=== PATIENT | female | born 1995 | race Caucasian/White ===

== ENCOUNTER 2018-10-27 12:11 | Emergency (ER) | payer SELFPAY ==
[2018-10-27 13:32] LABS: Urine Blood 2+ (NEG); Urine Glucose NEGATIVE (NEG); Urine Protein NEGATIVE (NEG); Urine Specific Gravity 1.025 (1.005-1.030); Urine pH 5.5 (5.0-7.0)
--- NOTE | 2018-10-27 13:42 | ER ---
Nurse's Notes [facility] Name: Katharina Contreras Age: 22 yrs Sex: Female : 1995 Arrival Date: 10/27/2018 Time: 12:14 Bed 23 Private MD: Diagnosis: Abnormal uterine and vaginal bleeding, unspecified Presentation: 10/27 12:53 Presenting complaint: Patient states: Vaginal bleeding with large clots since last aj1 week. States that the bleeding stopped yesterday but then last night when she wiped she noticed some clots and then this morning she was bleeding again. Reports seeing a large clot the last time she went to the bathroom. Patient reports that her periods have been irregular and not having a normal period since January. 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 Transition of care: patient was not received from another setting of care. Onset of symptoms was September 2018. Risk Assessment: Do you want to hurt yourself or someone else? Patient reports no desire to harm self or others. Initial Sepsis Screen: Does the patient meet any 2 criteria? No. Patient's initial sepsis screen is negative. Does the patient have a suspected source of infection? No. Patient's initial sepsis screen is negative. Care prior to arrival: None. 12:53 Method Of Arrival: Ambulatory aj1 12:53 Acuity: ROGELIO 3 aj1 Triage Assessment: 12:53 General: Appears in no apparent distress. comfortable, Behavior is calm, cooperative, aj1 appropriate for age. Pain: Complains of pain in right lower quadrant and left lower quadrant Pain currently is 2 out of 10 on a pain scale. Quality of pain is described as crampy. : Reports vaginal bleeding that is with clots. 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 - Social history:: Smoking status: Patient/guardian denies using tobacco. - Family history:: not pertinent. - Ebola Screening: : Patient negative for fever greater than or equal to 101.5 degrees Fahrenheit, and additional compatible Ebola Virus Disease symptoms. Screenin:01 Abuse screen: Denies threats or abuse. Denies injuries from another. Nutritional aj1 screening: No deficits noted. Tuberculosis screening: No symptoms or risk factors identified. 13:59 Fall Risk None identified. aj1 Assessment: 12:56 General: Appears in no apparent distress. comfortable, Behavior is calm, cooperative, aj1 appropriate for age. Pain: Complains of pain in left lower quadrant and right lower quadrant Pain does not radiate. Pain currently is 2 out of 10 on a pain scale. Quality of pain is described as crampy. Neuro: Level of Consciousness is awake, alert, obeys commands, Oriented to person, place, time, situation. Cardiovascular: Patient's skin is warm and dry. Respiratory: Airway is patent Respiratory effort is even, unlabored, Respiratory pattern is regular, symmetrical. GI: Reports cramping. : Reports vaginal bleeding that is bright red, with clots. : Patient reports vaginal bleeding for the past week. EENT: No signs and/or symptoms were reported regarding the EENT system. Derm: No signs and/or symptoms reported regarding the dermatologic system. Skin is pink, warm \T\ dry. normal. Musculoskeletal: No signs and/or symptoms reported regarding the musculoskeletal system. Circulation, motion, and sensation intact. 13:51 Reassessment: Patient appears in no apparent distress at this time. No changes from aj1 previously documented assessment. Patient and/or family updated on plan of care and expected duration. Pain level reassessed. Patient is alert, oriented x 3, equal unlabored respirations, skin warm/dry/pink. Vital Signs: 12:53 BP 126 / 91; Pulse 102; Resp 18; Temp 98.0; Pulse Ox 97% on R/A; Weight 102.06 kg; aj1 Height 5 ft. 3 in. (160.02 cm) (R); Pain 2/10; 13:35 BP 109 / 80 Supine; Pulse 87; Resp 18; Pulse Ox 97% on R/A; aj1 13:37 BP 121 / 86 Sitting; Pulse 79; aj1 13:39 BP 117 / 88 Standing; Pulse 81; aj1 12:53 Body Mass Index 39.86 (102.06 kg, 160.02 cm) aj1 ED Course: 12:14 Patient arrived in ED. rg4 12:42 Kali Hinson MD is Attending Physician. [facility] 12:53 Steff Pearce RN is Primary Nurse. aj1 12:53 Arm band placed on Patient placed in an exam room. aj1 12:55 Triage completed. aj1 13:01 Patient has correct armband on for positive identification. Bed in low position. Call aj1 light in reach. Side rails up X 1. 13:01 No provider procedures requiring assistance completed. aj1 13:25 Assist provider with pelvic exam: Set up pelvic tray. Performed by Kali Hinson MD aj1 Patient tolerated well. 13:40 Gwendolyn Jenkins MD is Referral Physician. [facility] 13:53 Patient did not have IV access during this emergency room visit. aj1 Administered Medications: No medications were administered Outcome: 13:41 Discharge ordered by . [facility] 13:59 Discharged to home ambulatory. aj1 13:59 Condition: good 13:59 Discharge instructions given to patient, Instructed on discharge instructions, follow up and referral plans. medication usage, Demonstrated understanding of instructions, follow-up care, medications, Prescriptions given X 2. 13:59 Patient left the ED. aj Signatures: Steff Pearce, RN RN aj1 Kali Hinson MD MD cha Garcia, Rubi rg4
--- NOTE | 2018-10-27 13:42 | EDPHYS ---
Physician Documentation [facility] Name: Katharina Contreras Age: 22 yrs Sex: Female : 1995 Arrival Date: 10/27/2018 Time: 12:14 Bed 23 Private MD: ED Physician Kali Hinson HPI: 10/27 13:31 This 22 yrs old Female presents to ER via Ambulatory with complaints of rolf Vaginal Bleeding. 13:31 The patient presents with pelvic pain, vaginal bleeding that is light, moderate. Onset: rolf The symptoms/episode began/occurred 6 day(s) ago. Modifying factors: The symptoms are alleviated by nothing, the symptoms are aggravated by nothing. Associated signs and symptoms: The patient has no apparent associated signs or symptoms. Severity of symptoms: At their worst the symptoms were mild, moderate, in the emergency department the symptoms are unchanged. The patient has experienced similar episodes in the past, several times. 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 - Social history:: Smoking status: Patient/guardian denies using tobacco. - Family history:: not pertinent. - Ebola Screening: : Patient negative for fever greater than or equal to 101.5 degrees Fahrenheit, and additional compatible Ebola Virus Disease symptoms. ROS: 13:31 Constitutional: Negative for fever, chills, and weight loss, Eyes: Negative for injury, rolf pain, redness, and discharge, ENT: Negative for injury, pain, and discharge, Neck: Negative for injury, pain, and swelling, Cardiovascular: Negative for chest pain, palpitations, and edema, Respiratory: Negative for shortness of breath, cough, wheezing, and pleuritic chest pain, Abdomen/GI: Negative for abdominal pain, nausea, vomiting, diarrhea, and constipation, Back: Negative for injury and pain, MS/Extremity: Negative for injury and deformity, Skin: Negative for injury, rash, and discoloration, Neuro: Negative for headache, weakness, numbness, tingling, and seizure, Psych: Negative for depression, anxiety, suicide ideation, homicidal ideation, and hallucinations, Allergy/Immunology: Negative for hives, rash, and allergies, Endocrine: Negative for neck swelling, polydipsia, polyuria, polyphagia, and marked weight changes, Hematologic/Lymphatic: Negative for swollen nodes, abnormal bleeding, and unusual bruising. 13:31 : Positive for vaginal bleeding. Exam: 13:31 Constitutional: This is a well developed, well nourished patient who is awake, alert, rolf and in no acute distress. Head/Face: Normocephalic, atraumatic. Eyes: Pupils equal round and reactive to light, extra-ocular motions intact. Lids and lashes normal. Conjunctiva and sclera are non-icteric and not injected. Cornea within normal limits. Periorbital areas with no swelling, redness, or edema. ENT: Nares patent. No nasal discharge, no septal abnormalities noted. Tympanic membranes are normal and external auditory canals are clear. Oropharynx with no redness, swelling, or masses, exudates, or evidence of obstruction, uvula midline. Mucous membranes moist. Neck: Trachea midline, no thyromegaly or masses palpated, and no cervical lymphadenopathy. Supple, full range of motion without nuchal rigidity, or vertebral point tenderness. No Meningismus. Chest/axilla: Normal chest wall appearance and motion. Nontender with no deformity. No lesions are appreciated. Cardiovascular: Regular rate and rhythm with a normal S1 and S2. No gallops, murmurs, or rubs. Normal PMI, no JVD. No pulse deficits. Respiratory: Lungs have equal breath sounds bilaterally, clear to auscultation and percussion. No rales, rhonchi or wheezes noted. No increased work of breathing, no retractions or nasal flaring. Abdomen/GI: Soft, non-tender, with normal bowel sounds. No distension or tympany. No guarding or rebound. No evidence of tenderness throughout. Back: No spinal tenderness. No costovertebral tenderness. Full range of motion. Skin: Warm, dry with normal turgor. Normal color with no rashes, no lesions, and no evidence of cellulitis. MS/ Extremity: Pulses equal, no cyanosis. Neurovascular intact. Full, normal range of motion. Neuro: Awake and alert, GCS 15, oriented to person, place, time, and situation. Cranial nerves II-XII grossly intact. Motor strength 5/5 in all extremities. Sensory grossly intact. Cerebellar exam normal. Normal gait. Psych: Awake, alert, with orientation to person, place and time. Behavior, mood, and affect are within normal limits. 13:38 : Pelvic Exam: External exam: is normal, Speculum exam: normal findings, scant rolf bleeding, bimanual exam reveals normal findings, discharge, is not appreciated, the nurse was present for the exam. Vital Signs: 12:53 BP 126 / 91; Pulse 102; Resp 18; Temp 98.0; Pulse Ox 97% on R/A; Weight 102.06 kg; aj1 Height 5 ft. 3 in. (160.02 cm) (R); Pain 2/10; 13:35 BP 109 / 80 Supine; Pulse 87; Resp 18; Pulse Ox 97% on R/A; aj1 13:37 BP 121 / 86 Sitting; Pulse 79; aj1 13:39 BP 117 / 88 Standing; Pulse 81; aj1 12:53 Body Mass Index 39.86 (102.06 kg, 160.02 cm) aj1 MDM: 12:42 Patient medically screened. [facility] 13:33 Data reviewed: vital signs, nurses notes. [facility] 10/27 13:12 Order name: Urine --Ancillary (enter results) 10/27 13:12 Order name: Urine Dipstick--Ancillary (enter results) 10/27 13:12 Order name: Urine Dipstick-Ancillary (obtain specimen); Complete Time: 13:12 10/27 13:12 Order name: Urine Test (obtain specimen); Complete Time: 13:12 10/27 13:26 Order name: Orthostatics; Complete Time: 13:51 [facility] 10/27 13:26 Order name: Pelvic Exam Setup; Complete Time: 13:51 [facility] Administered Medications: No medications were administered Disposition: 10/27/18 13:41 Discharged to Home. Impression: Abnormal uterine and vaginal bleeding, unspecified. - Condition is Stable. - Discharge Instructions: Abnormal Uterine Bleeding. - Prescriptions for Motrin IB 200 mg Oral Tablet - take 2 tablet by ORAL route every 6 hours As needed as needed with food; 30 tablet. - Medication Reconciliation Form, Thank You Letter, Antibiotic Education, Prescription Opioid Use form. - Follow up: Private Physician; When: 2 - 3 days; Reason: Recheck today's complaints, Continuance of care, Re-evaluation by your physician. Follow up: Gwendolyn Jenkins MD; When: 2 - 3 days; Reason: Recheck today's complaints, Re-evaluation by your physician. - Problem is new. - Symptoms have improved. Signatures: Dispatcher [employer] EDSteff Silvestre RN RN aj1 Kali Hinson MD MD cha Smirch, Shelby, RN RN ss Corrections: (The following items were deleted from the chart) 13:59 13:41 10/27/2018 13:41 Discharged to Home. Impression: Abnormal uterine and vaginal aj1 bleeding, unspecified. Condition is Stable. Forms are Medication Reconciliation Form, Thank You Letter, Antibiotic Education, Prescription Opioid Use. Follow up: Private Physician; When: 2 - 3 days; Reason: Recheck today's complaints, Continuance of care, Re-evaluation by your physician. Follow up: Gwendolyn Jenkins; When: 2 - 3 days; Reason: Recheck today's complaints, Re-evaluation by your physician. Problem is new. Symptoms have improved. rolf
== END 2018-10-27 13:59 | disposition home or self-care (01) ==
LOC: ER 12:11
DX: N93.9 Abnormal uterine and vaginal bleeding, unspecified (principal)
CPT/HCPCS: 81003; 81025; 99283